=== PATIENT | male | born 1960 | race Caucasian/White ===

== ENCOUNTER 2016-12-25 21:32 | Emergency (ER) | payer OTHER ==
[~2016-12-25] VITALS: Ht 195.5 cm; Wt 81.6 kg
[~2016-12-25 21:32] MED LIST: ALPRAZOLAM2 MG PO; ATIVAN1 MG PO; CARDIZEM60 MG PO; CATAFLAM50 MG PO; CITALOPRAM40 MG PO; CYMBALTA30 MG PO; DAYPRO600 M1 PO; IBU800 MG PO; LOPRESSOR25 MG PO; MEDROL DOSEPAK4 MG PO; MOTRIN800 MG PO; NICOTINE T21 MG/24 H T; NORCO 325 MG-51 TAB PO; NORFLEX100 MG PO; OXYCODONE5 M1 PO; PAROXETINE20 MG PO; PERCOCET 325 MG1 TA3 PO; PREDNISONE20 MG PO; ROBAXIN750 MG PO; ULTRAM50 MG PO; VICODIN 500 MG-1 TAB PO; XANAX1 MG PO
== END 2016-12-26 01:49 | disposition short-term general hospital (02) ==
LOC: ED 21:32
DX: S02.401A Maxillary fracture, unspecified side, initial encounter for closed fracture (principal); S02.30XA Fracture of orbital floor, unspecified side, initial encounter for closed fracture; I48.91 Unspecified atrial fibrillation; F17.200 Nicotine dependence, unspecified, uncomplicated; Y08.89XA Assault by other specified means, initial encounter; Y93.89 Activity, other specified; Y92.009 Unspecified place in unspecified non-institutional (private) residence as the place of occurrence of the external cause; Y99.9 Unspecified external cause status

== ENCOUNTER 2017-01-03 12:46 | Emergency (ER) | payer OTHER ==
[2017-01-03] MEDS ORDERED: HYDROCODONE BIT1 T11 PO (16:42)
== END 2017-01-03 16:45 | disposition left against medical advice (07) ==
LOC: ED 12:46
DX: S02.81XA Fracture of other specified skull and facial bones, right side, initial encounter for closed fracture (principal); H11.439 Conjunctival hyperemia, unspecified eye; I48.91 Unspecified atrial fibrillation; F17.200 Nicotine dependence, unspecified, uncomplicated; X58.XXXA Exposure to other specified factors, initial encounter; Y93.89 Activity, other specified; Y92.9 Unspecified place or not applicable; Y99.9 Unspecified external cause status

== ENCOUNTER → 2018-05-15 | Outpatient (CLI) | payer OTHER ==
[~2018-05-15] MED LIST changes: +HYDROCODONE BIT1 T11 PO
--- NOTE | ~2018-05-15 | EKG ---
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
== END | disposition home or self-care (01) ==
LOC: RAD 13:08
DX: J44.1 Chronic obstructive pulmonary disease with (acute) exacerbation (principal)

== ENCOUNTER 2022-05-24 15:26 | Emergency (ER) | payer OTHER ==
[~2022-05-24] VITALS: Ht 195.5 cm; Wt 83.9 kg
== END 2022-05-24 18:23 | disposition left against medical advice (07) ==
LOC: ED 15:26
DX: S22.43XA Multiple fractures of ribs, bilateral, initial encounter for closed fracture (principal); S12.590A Other displaced fracture of sixth cervical vertebra, initial encounter for closed fracture; S52.692A Other fracture of lower end of left ulna, initial encounter for closed fracture; F17.200 Nicotine dependence, unspecified, uncomplicated; V89.2XXA Person injured in unspecified motor-vehicle accident, traffic, initial encounter; Y93.55 Activity, bike riding; Y92.413 State road as the place of occurrence of the external cause; Y99.9 Unspecified external cause status

== ENCOUNTER 2022-06-01 15:39 | Emergency (ER) | payer OTHER ==
[~2022-06-01] VITALS: Ht 195.5 cm; Wt 83.9 kg
== END 2022-06-01 16:52 | disposition left against medical advice (07) ==
LOC: ED 15:39
DX: M25.511 Pain in right shoulder (principal); Z53.21 Procedure and treatment not carried out due to patient leaving prior to being seen by health care provider

== ENCOUNTER → 2023-01-14 | Outpatient (CLI) | payer OTHER | END | disposition home or self-care (01) | LOC: US 15:37 | PROVIDERS: ATTEND Internal Medicine | DX: I65.23 Occlusion and stenosis of bilateral carotid arteries (principal); I70.203 Unspecified atherosclerosis of native arteries of extremities, bilateral legs; R09.89 Other specified symptoms and signs involving the circulatory and respiratory systems ==

== ENCOUNTER 2023-02-09 16:13 | Emergency (ER) | payer OTHER ==
[~2023-02-09] VITALS: Wt 76.2 kg
[2023-02-09 17:41] LABS: BASO # 0.2 10*3/uL (0.0-0.1); BASO % 2.1 % (0.0-1.0); EOS # 0.2 10*3/uL (0.0-0.4); EOS % 2.7 % (1.0-4.0); HEMATOCRIT 37.7 % (42.0-52.0); LYMPH # 1.2 10*3/uL (1.3-4.4); LYMPH % 17.2 % (27.0-41.0); MEAN CELL VOLUME 94.3 fl (80.0-94.0); MEAN CORPUSCULAR HGB 32.3 pg (27.0-31.0); MEAN CORPUSCULAR HGB CONC 34.2 g/dl (33.0-37.0); MONO # 0.6 10*3/uL (0.1-1.0); NEUT % 69.7 % (47.0-73.0); PLATELET COUNT AUTOMATED 324 10*3/uL (130-400); RED CELL DISTRI WIDTH 14.6 % (0-14.5); WHITE BLOOD COUNT 7.1 10*3/uL (4.8-10.8)
[2023-02-09 17:52] LABS: ACT PARTIAL THROMBO TIME 32.8 SECONDS (20.0-32.1)
[2023-02-09 18:05] LABS: ALKALINE PHOSPHATASE 101 U/L (46-116); BUN 16 mg/dl (9-23); CHLORIDE 102 mmol/L (98-107); LIPASE 24 U/L (12-53); POTASSIUM 3.8 mmol/L (3.4-5.1); SGPT/ALT 16 U/L (10-49); TOTAL PROTEIN 7.1 gm/dL (6.0-8.0)
== END 2023-02-09 18:47 | disposition left against medical advice (07) ==
LOC: ED 16:13
PROVIDERS: Emergency Medicine
DX: R09.89 Other specified symptoms and signs involving the circulatory and respiratory systems (principal); R20.0 Anesthesia of skin; F31.9 Bipolar disorder, unspecified; Z79.899 Other long term (current) drug therapy; F10.10 Alcohol abuse, uncomplicated; F17.200 Nicotine dependence, unspecified, uncomplicated; Z98.890 Other specified postprocedural states

== ENCOUNTER → 2023-03-22 | Outpatient (CLI) | payer OTHER | END | disposition home or self-care (01) | LOC: CT 00:16 | PROVIDERS: ATTEND Internal Medicine | DX: S12.9XXA Fracture of neck, unspecified, initial encounter (principal); M47.812 Spondylosis without myelopathy or radiculopathy, cervical region; M48.02 Spinal stenosis, cervical region; X58.XXXA Exposure to other specified factors, initial encounter; Y93.89 Activity, other specified; Y92.89 Other specified places as the place of occurrence of the external cause; Y99.8 Other external cause status ==

== ENCOUNTER 2023-12-20 11:00 | Emergency (ER) | payer OTHER ==
[~2023-12-20] VITALS: Ht 195.5 cm; Wt 84.8 kg
[2023-12-20] MEDS ORDERED: Acetaminophen/Hydrocodone 5 MG/325 MG TABLET PO ONE (11:20)
[2023-12-20] MEDS ORDERED: VALACYCLOVIR500 M1 PO (11:34)
[2023-12-20] MEDS ORDERED: NICOTINE POLACRILEX 4 MG GUM PO ONE (13:55)
== END 2023-12-20 21:30 | disposition short-term general hospital (02) ==
LOC: ED 11:00
DX: S72.001A Fracture of unspecified part of neck of right femur, initial encounter for closed fracture (principal); B00.52 Herpesviral keratitis; H57.11 Ocular pain, right eye; F31.9 Bipolar disorder, unspecified; Z98.890 Other specified postprocedural states; F10.10 Alcohol abuse, uncomplicated; F17.200 Nicotine dependence, unspecified, uncomplicated; W19.XXXA Unspecified fall, initial encounter; Y93.89 Activity, other specified; Y92.89 Other specified places as the place of occurrence of the external cause; Y99.8 Other external cause status